=== PATIENT | female | born 1960 | race Caucasian/White ===

== ENCOUNTER → 2018-06-22 16:00 | Outpatient (CLI) | payer BC, SELFPAY ==
--- NOTE | 2018-06-22 16:07 | XR_ITS ---
XR hip LT 2-3V w/pelvis HISTORY: ITS.REASON: LEFT HIP PAIN ORDERING PHYSICIAN: Lino Cho MD PATIENT AGE: 58 years COMPARISON: 01/07/2017 FINDINGS: No fracture or dislocation is evident. No significant degenerative change. No lytic or blastic change. Unremarkable soft tissues. Previously noted acetabular fracture is no longer apparent IMPRESSION: Negative hip
--- NOTE | 2018-06-22 16:07 | XR_ITS ---
EXAM: XR lumbar spine min 4V HISTORY: ITS.REASON: LOW BACK PAIN ORDERING PHYSICIAN: Lino Cho MD PATIENT AGE: 58 years COMPARISON: None FINDINGS: There is normal alignment. There is mild degenerative disc disease at T12-L1 and L1-L2 L4-5 and L5-S1. Anterior osteophytes are present at L1-L2. No acute fracture or dislocation. No lytic or blastic change. There are facet arthritic changes at L5-S1. Incidental vascular calcifications are noted. There are bilateral tubal ligation clips IMPRESSION: Degenerative changes lumbar spine, no acute finding
== END ==
LOC: RAD 16:03
PROVIDERS: PCP Family Medicine; Visit Provider Family Medicine
DX: M25.552 Pain in left hip (principal); M54.5 Low back pain
CPT/HCPCS: 72110; 73502

== ENCOUNTER → 2018-08-07 14:22 | Outpatient (CLI) | payer BC, SELFPAY ==
--- NOTE | 2018-08-07 14:24 | MM_ITS ---
MM Dig screening mamm BI w/CAD CAD Screening COMPARISON: Digital mammograms with CAD 08/16/2014 and 01/26/2013 INDICATION: There is no personal or family history of breast cancer TECHNIQUE: Standard CC and MLO images were obtained. R2 CAD reviewed. FINDINGS: Scattered fibroglandular densities are seen throughout both breasts. There there is a benign-appearing calcification in each breast. There is no suspicious lesion and no suspicious microcalcifications. IMPRESSION: Fibrofatty parenchyma with no suspicious lesion seen BI-RADS Category: 2 Benign Finding(s) RECOMMENDED FOLLOW-UP: 1YR - 1 YEAR FOLLOW-UP (A letter has been sent to the patient regarding results of the study.)
== END ==
PROVIDERS: PCP Family Medicine; Visit Provider Family Medicine
DX: Z12.31 Encounter for screening mammogram for malignant neoplasm of breast (principal)
CPT/HCPCS: 77067

== ENCOUNTER → 2019-11-16 16:23 | Outpatient (CLI) | payer BC, SELFPAY ==
--- NOTE | 2019-11-16 16:26 | MM_ITS ---
PROCEDURE: MM DIG SCREENING MAMM BI W/CAD DIGITAL BREAST TOMOSYNTHESIS INCLUDED Patient Age:59Y CLINICAL INDICATION: SCREENING. No hormones. No new complaints.. This patient does have a history of lung cancer But noncontributory family history.. COMPARISON: DIGMAMMS MAMMOGRAM SCREEN-SLIP SHEETER N/C from 10/01/2007 [facility] DIGITAL MAMM-SCREEN BILATERAL from 01/15/2012 [facility] DIG MAMM-SCREEN JW from 01/26/2013 [facility] DIG MAMM-SCREEN JW from 08/16/2014 [facility] MM Dig screening mamm BI w/CAD from 08/07/2018 TECHNIQUE: Standard CC and MLO images were obtained. R2 CAD reviewed. Bilateral digital breast tomosynthesis included. FINDINGS: Nodw-sp-zlrzmbfd density breast. No new dominant or suspicious mass, no suspicious calcification. No new areas of architectural distortion identified. No malignancy evident radiographically. Bilateral follow-up 1 year recommended . IMPRESSION: Stable bilateral mammogram with no new areas of concern. Bilateral follow-up 1 year recommended BI-RAD Category: 1 Negative FOLLOW-UP: 1YR 1 Year Follow-up (A letter has been sent to the patient regarding results of the study.) Dictated by: Shreyas Broussard MD 11/21/2019 21:18 Electronically signed by Shreyas Broussard MD in [place] 11/21/2019 21:18
== END ==
PROVIDERS: PCP Family Medicine; Visit Provider Family Medicine
DX: Z12.31 Encounter for screening mammogram for malignant neoplasm of breast (principal)
CPT/HCPCS: 77063; 77067

== ENCOUNTER 2020-04-29 09:03 | Emergency (ER) | payer BC, SELFPAY ==
[2020-04-29 09:10] VITALS: BP 120/77; PULSE 77; RESP 20; TEMP 36.7; O2SAT 98; BMI 26.5
--- NOTE | 2020-04-29 09:25 | XR_ITS ---
PROCEDURE: XR CHEST PORTABLE CLINICAL HISTORY: cough COMPARISON: No exams were available for comparison FINDINGS: Normal heart size. Postsurgical changes with suture line in the right hilum. The lateral and anterior aspect of the right 4th rib is missing presumed to be postsurgical. Please correlate with surgical history. There is some pleural thickening in this region. Previously noted mass in the right apex is no longer apparent. The remaining lungs are clear. IMPRESSION: 1. No evidence of pneumonia.. 2. Postsurgical changes. Missing right 3rd rib laterally presumed postsurgical. Please correlate with surgical history as a lytic lesion is an additional consideration. Dictated by: George Mendoza MD 04/29/2020 11:17 George Mendoza MD in [place] 04/29/2020 11:17
--- NOTE | 2020-04-29 09:36 | HMH.EDUTC ---
[facility] [place] [facility] Disposition Clinical Impression: Bronchitis, Viral syndrome, Exposure to COVID-19 virus Disposition: Home, Self-Care Condition on Discharge: Good Instructions: DI for COVID-19 (Suspected or Confirmed ), Preventing the Spread of Coronavirus Discharge Instructions Additional Instructions: Drink plenty of fluids. Take tylenol or ibuprofen for pain or fever. Take the medications as directed. Follow up with your regular doctor. GO TO THE ER FOR ANY WORSENING SYMPTOMS Prescriptions: Benzonatate [Tessalon Perle 100mg Cap] 100 mg PO TIDP PRN #30 cap PRN Reason: Cough Transmission Status: Received by [facility] Azithromycin [Z-Jaylon 250mg Tab*] 250 mg PO UD DOSE PK #6 tab Transmission Status: Received by [facility] Referrals: Lino Cho MD [Primary Care Provider] - Time of Disposition: 10:01 Medical Decision Making - Medical Records Medical records reviewed: No: I reviewed the patient's medical records. - Keith Inquiry Pt receiving controlled substance: No Vital Signs: 04/29/20 09:10 04/29/20 10:03 Temperature 98.0 F 98.0 F Temperature Source Oral Pulse Rate 77 Pulse Rate [Right Brachial] 77 Respiratory Rate 20 20 Blood Pressure 120/77 Blood Pressure [Right Arm] 120/77 Blood Pressure Mean [Right Arm] 91 Blood Pressure Source [Right Arm] Automatic Cuff Blood Pressure Position [Right Arm] Sitting 02 Sat by Pulse Oximetry 98 Oxygen Delivery Method Room Air - Lab Data Lab Results 04/29/20 09:20: SARS-CoV-2 (PCR) Detected 04/29/20 09:41: Strep Scn Rapid Clinic Negative Orders (Tests/Meds): ORDERS Category Date Time Status Strep Screen Confirmation Stat Micro 04/29/20 09:41 Received [facility] [place] [facility] HPI - General Stated complaint: headache, soa, congestion, covid + Time Seen by Provider: 04/29/20 09:36 Mode of Arrival: Ambulatory Source of Information: Patient Limitations: No Limitations Description of Symptoms (Recalled from Triage Doc. by RN): PATIENT REQUESTING COVID TEST D/T EXPOSURE THROUGH . C/O DRY COUGH, HEADACHE, AND BILATERAL RIB PAIN X 2 DAYS HEENT Symptoms (Recalled from RN notes): Yes Resp Symptoms (Recalled from RN notes): Yes Skin Symptoms (Recalled from RN notes): No MS Symptoms (Recalled from RN notes): Yes Functional Status (Recalled from RN notes): WNL - Related Data Previous Rx's Medication Instructions Recorded Azithromycin [Z-Jaylon 250mg Tab*] 250 mg PO UD DOSE PK #6 tab 04/29/20 Benzonatate [Tessalon Perle 100mg 100 mg PO TIDP PRN #30 cap 04/29/20 Cap] Allergies Allergy/AdvReac Type Severity Reaction Status Date / Time No Known Allergies Allergy Verified 04/29/20 09:32 - Worker's Comp Is this a Worker's Comp case?: No [facility] History - Hepatitis A Screen Drug use history?: No High risk sexual behaviors?: No History of sexually transmitted infection?: No Currently employed?: No Childcare worker?: No Do you have indoor plumbing?: Yes Do you have electricity?: Yes Attestation statement:: This patient has been screened for Hepatitis A risk factors. I have reviewed the patient's past medical history: Yes Medical History: Reports:: Cancer - Social History Alcohol Intake: never Occupational Status: other ROS Obtained: Yes All systems reviewed & no additional complaints - Constitutional Constitutional: Reports system reviewed and no additional complaints, except as docu - Eyes Eyes: Reports system reviewed and no additional complaints, except as docu - ENT Ears, Nose, Mouth, and Throat: Reports system reviewed and no additional complaints, except as docu - Cardiovascular Cardiovascular: Reports system reviewed and no additional complaints, except as docu - Respiratory Respiratory: Yes system reviewed and no additional complaints, except as docu - Gastrointestinal Gastrointestingal: Reports: system reviewed and no additional complaints, except as docu Physical Exam
[2020-04-29 09:42] LABS: UTC Strep Screen (Rapid) Negative (Negative)
[2020-04-29 10:03] VITALS: BP 120/77; PULSE 77; RESP 20; TEMP 36.7; O2SAT 98
[2020-04-30 09:29] LABS: Covid-19 Nasal PCR Sendout UK DETECTED
--- NOTE | 2020-04-30 09:33 | PC.NURSE ---
patient notified of positive covid results
== END 2020-04-29 10:05 | disposition home or self-care (01) ==
PROVIDERS: Emergency Provider Nurse Practitioner Family; PCP Family Medicine
DX: U07.1 COVID-19 (principal)
CPT/HCPCS: 71045; 87880; 99202; U0003

== ENCOUNTER → 2021-01-09 16:59 | Outpatient (CLI) | payer BC, SELFPAY ==
--- NOTE | 2021-01-09 17:00 | MM_ITS ---
PROCEDURE: MM DIG SCREENING MAMM BI W/CAD Digital Breast Tomosynthesis Included CLINICAL INDICATION: SCREENING COMPARISON: MG [facility] DIG MAMM-SCREEN JW from 08/16/2014 MG [facility] MM Dig screening mamm BI w/CAD from 08/07/2018 MG MM DIG SCREENING MAMM BI W/CAD from 11/16/2019 TECHNIQUE: Standard CC and MLO images and 3D Tomosynthesis was obtained. R2 CAD reviewed. FINDINGS: There are scattered areas of fibroglandular density. No suspicious appearing mass, malignant-appearing microcalcification, architectural distortion, or skin thickening. No significant change IMPRESSION: BI-RAD Category: 1 Negative FOLLOW-UP: 1 YR 1 Year Follow-up (A letter has been sent to the patient regarding results of the study.) Dictated by: George Mendoza MD 01/17/2021 15:29 George Mendoza MD in [place] 01/17/2021 15:29
== END ==
PROVIDERS: PCP Family Medicine; Visit Provider Family Medicine
DX: Z12.31 Encounter for screening mammogram for malignant neoplasm of breast (principal)
CPT/HCPCS: 77063; 77067

== ENCOUNTER 2021-04-04 15:17 | Emergency (ER) | payer BC, SELFPAY ==
[2021-04-04 16:01] VITALS: BP 156/79; PULSE 64; RESP 18; TEMP 36.9; O2SAT 99; BMI 27.4
[2021-04-04 16:06] LABS: UTC Strep Screen (Rapid) Negative (Negative)
--- NOTE | 2021-04-04 16:10 | HMH.EDUTC ---
[facility] [place] Disposition Clinical Impression: Bronchitis Sinusitis Qualifiers: Sinusitis location: unspecified location Chronicity: acute Recurrence: non-recurrent Qualified Code(s): J01.90 - Acute sinusitis, unspecified Disposition: Home, Self-Care Condition on Discharge: Good Instructions: DI for Sinusitis, DI for Acute Bronchitis Additional Instructions: Drink plenty of fluids. Take tylenol or ibuprofen for pain or fever. Take the medications as directed. Follow up with your regular doctor. GO TO THE ER FOR ANY WORSENING SYMPTOMS Quarantine until you know the results of your covid-19 test. If it is positive, the health department should call you and give you further instructions about your length of Quarantine and other things. Notify your school or workplace of your results and follow their instructions regarding return to work/school. The cough medication (promethazine dm) will make you drowsy, so don't drive or operate heavy machinery after taking it. Prescriptions: Promethazine/Dextromethorphan [Promethazine-Dm Syrup] 5 ml PO Q6HP PRN #240 ml PRN Reason: Cough Transmission Status: Received by [facility] Amoxicillin/Potassium Clav [Augmentin 875-125 Tablet] 1 tab PO Q12H 10 Days #20 tab Transmission Status: Received by [facility] methylPREDNISolone [Medrol] 4 mg PO DIRECTED 6 Days #21 packet Transmission Status: Received by [facility] guaiFENesin [Mucinex 600mg tablet] 1 - 2 tab PO BIDP PRN #30 tab PRN Reason: Congestion Transmission Status: Received by [facility] Referrals: Lino Cho MD [Primary Care Provider] - Medical Decision Making - Medical Records Medical records reviewed: No: I reviewed the patient's medical records. - Keith Inquiry Pt receiving controlled substance: No Vital Signs: 04/04/21 16:01 04/04/21 16:36 Temperature 98.4 F 98.4 F Temperature Source Oral Pulse Rate 64 Pulse Rate [Left] 64 Respiratory Rate 18 18 Blood Pressure 156/79 H Blood Pressure [Right Arm] 156/79 H Blood Pressure Mean [Right Arm] 104 02 Sat by Pulse Oximetry 99 - Lab Data Lab results reviewed: Yes: I reviewed the patient's lab results. Lab Results 04/04/21 15:55: Strep Scn Rapid Clinic Negative Orders (Tests/Meds): ORDERS Category Date Time Status Strep Screen Confirmation Routine Micro 04/04/21 15:55 Received [facility] [place] HPI - General Stated complaint: sore throat, cough, congestion, runny nose headach Time Seen by Provider: 04/04/21 16:10 Mode of Arrival: Ambulatory Source of Information: Patient Limitations: No Limitations Description of Symptoms (Recalled from Triage Doc. by RN): pt c/o cough, fever, sinus pressure, and sore throat. HEENT Symptoms (Recalled from RN notes): Yes (sore throat and sinus pressure) Resp Symptoms (Recalled from RN notes): Yes (cough) Skin Symptoms (Recalled from RN notes): No MS Symptoms (Recalled from RN notes): No Functional Status (Recalled from RN notes): wnl - History of Present Illness Provider Complaint: She c/o cough, chest congestion, sinus congestion, sore throat and she has felt bad for the past 2 days. She has been vaccinated against covid-19. She has a history of having lung cancer 4 years ago and she had part of her right lung removed then. - Related Data Previous Rx's Medication Instructions Recorded Azithromycin [Z-Jaylon 250mg Tab*] 250 mg PO UD DOSE PK #6 tab 04/29/20 Benzonatate [Tessalon Perle 100mg 100 mg PO TIDP PRN #30 cap 04/29/20 Cap] Amoxicillin/Potassium Clav 1 tab PO Q12H 10 Days #20 tab 04/04/21 [Augmentin 875-125 Tablet] Promethazine/Dextromethorphan 5 ml PO Q6HP PRN #240 ml 04/04/21 [Promethazine-Dm Syrup] guaiFENesin [Mucinex 600mg tablet] 1 - 2 tab PO BIDP PRN #30 tab 04/04/21 methylPREDNISolone [Medrol] 4 mg PO DIRECTED 6 Days #21 04/04/21 packet Allergies Allergy/AdvReac Type Severity Reaction Status Date / Time No K
[2021-04-04 16:36] VITALS: BP 156/79; PULSE 64; RESP 18; TEMP 36.9
== END 2021-04-04 16:40 | disposition home or self-care (01) ==
PROVIDERS: Emergency Provider Nurse Practitioner Family; PCP Family Medicine
DX: J01.90 Acute sinusitis, unspecified (principal); Z20.822 Contact with and (suspected) exposure to COVID-19; Z85.118 Personal history of other malignant neoplasm of bronchus and lung
CPT/HCPCS: 87880; 99203; C9803; G0463; U0003; U0005

== ENCOUNTER → 2023-04-29 08:49 | Outpatient (CLI) | payer BC, SELFPAY ==
--- NOTE | 2023-04-29 08:52 | XR_ITS ---
FINAL REPORT CLINICAL HISTORY: right wrist pain COMPARISON: None FINDINGS: RIGHT WRIST Three views demonstrate no acute fracture or dislocation. The visualized joint spaces are normally aligned. The soft tissues are unremarkable. IMPRESSION: No acute bony abnormality. Reviewed, Interpreted and Dictated by Manjeet Boles MD Transcribed by Martha Lowery Authenticated and [facility][1]
--- NOTE | 2023-04-29 08:52 | XR_ITS ---
FINAL REPORT CLINICAL HISTORY: left wrist pain COMPARISON: None FINDINGS: LEFT WRIST Three views demonstrate no acute fracture or dislocation. The visualized joint spaces are normally aligned. The soft tissues are unremarkable. There is mild hypertrophic change of osteoarthritis involving the basilar joint. IMPRESSION: No acute bony abnormality. Reviewed, Interpreted and Dictated by Manjeet Boles MD Transcribed by Martha Lowery Authenticated and [facility]
== END ==
LOC: RAD 08:50
PROVIDERS: PCP Family Medicine; Visit Provider Orthopaedic Surgery
DX: G56.03 Carpal tunnel syndrome, bilateral upper limbs (principal)
CPT/HCPCS: 73110

== ENCOUNTER 2023-05-14 11:07 | Outpatient (CLI) | payer BC, SELFPAY ==
--- NOTE | 2023-05-14 11:21 | ECG_ITS ---
APPROVED REPORT Exam: Resting ECG HR:70 bpm ECG Measurements Heart Rate 70 AXES QRSd 107 QRS 96 QT 375 T 71 QTc 395 Conclusion ATRIAL FLUTTER/TACHYCARDIA BORDERLINE RIGHT AXIS DEVIATION [QRS AXIS > 90] ABNORMAL RHYTHM ECG UNCONFIRMED REPORT Electronically signed by : Van Vasquez MD 05/15/2023 20:34:02
--- NOTE | 2023-05-14 11:21 | PC.NURSE ---
Pt for outpatient EKG reason being Pre-OP. EKG abnormal. Spoke to Dr. Cho's office manager receptionist states Pt needs to be seen. Pt aware and agreeable.
--- NOTE | 2023-05-14 11:36 | XR_ITS ---
FINAL REPORT CLINICAL HISTORY: Pre Op COMPARISON: 04/29/2020 FINDINGS: Two views of the chest were obtained. The heart size and pulmonary vascularity are within normal limits. The mediastinum is normal. No acute pulmonary abnormality is identified. There is no pneumothorax. The bony thorax is intact. IMPRESSION: No active cardiopulmonary disease. Reviewed, Interpreted and Dictated by Lewis Desai III, MD Transcribed by Deyanria Chery Authenticated and [facility]
[2023-05-14 11:51] LABS: Basophils # 0.1 K/mm3 (0-0.2); Eosinophils # 0.2 K/mm3 (0.0-0.4); Eosinophils % 2.9 % (0.1-12.0); Hematocrit 45.7 % (37.0-47.0); Lymphocytes # 2.4 K/mm3 (0.7-4.5); Lymphocytes % 40.8 % (10-50); Mean Corpuscular HGB Conc 32.9 g/dL (31.8-35.4); Mean Corpuscular Hemoglobin 30.8 pg (27.0-31.2); Mean Corpuscular Volume 93.9 fl (81-99); Mean Platelet Volume 9.3 fl (7.4-10.4); Monocytes # 0.3 K/mm3 (0.1-1.0); Monocytes % 5.2 % (1.7-9.3); Neutrophils % 50.2 % (37.0-80.0); Platelet Count 207 K/mm3 (142-424); Red Blood Count 4.87 M/mm3 (4.20-5.40); Red Cell Distribution Width 13.1 % (11.5-17.5)
[2023-05-14 12:08] LABS: Alanine Aminotransferase 25 U/L (12-78); Albumin Level 4.4 g/dl (3.5-5.0); Albumin/Globulin Ratio 1.7 (1.1-1.8); Alkaline Phosphatase 47 U/L (38-126); Anion Gap 7.5 mEq/L (5-15); Aspartate Amino Transferase 35 U/L (14-36); Bilirubin,Total 0.8 mg/dl (0.2-1.3); Blood Urea Nitrogen 11 mg/dl (7-17); Carbon Dioxide 29 mmol/L (22.0-30.0); Chloride 104 mmol/L (98-107); Estimated Glomerular Filt Rate 64 ml/min (>60); GFR (African American) 77 ML/MIN (>60); Globulin 2.6 g/dL (1.3-3.2); Glucose 104 mg/dl (74-100); Potassium 4.5 mmoL/L (3.5-5.1); Sodium 136 mmol/L (136-145)
== END 2023-05-14 23:59 ==
PROVIDERS: PCP Family Medicine; Visit Provider Orthopaedic Surgery
DX: Z01.818 Encounter for other preprocedural examination (principal)
CPT/HCPCS: 36415; 71046; 80053; 85025; 93005

== ENCOUNTER 2023-08-04 08:44 | Emergency (ER) | payer BC, SELFPAY ==
[2023-08-04] VITALS (11 sets, daily range): BP systolic 102–163; BP diastolic 48–94; PULSE 44–66; RESP 16–18; TEMP 36.9; O2SAT 92–98; BMI 25.6
--- NOTE | 2023-08-04 08:44 | ECG_ITS ---
APPROVED REPORT Exam: Resting ECG HR:65 bpm ECG Measurements Heart Rate 65 AXES QRSd 89 QRS 88 QT 387 T 57 QTc 399 Conclusion Atrial flutter with 4:1 block - intermittent with apparent idioventricular rhythm Nonspecific ST/T wave changes No STEMI Electronically signed by : ADRIANNE PORRAS, 08/04/2023 15:57:18
--- NOTE | 2023-08-04 08:59 | CT_ITS ---
FINAL REPORT TECHNIQUE: Axial imaging of the neck was obtained after the intravenous administration of contrast per CTA protocol. Reformatted images were also obtained and reviewed. This study was performed with techniques to keep radiation doses as low as reasonably achievable (ALARA). Individualized dose reduction techniques using automated exposure control or adjustment of mA and/or kV according to the patient's size were employed. CLINICAL HISTORY: sudden onset vertigo, FINDINGS: CTA NECK: Aortic arch: There is a normal three-vessel configuration to the aortic arch. There is no significant stenosis of the great vessels at their origins. Right carotid artery: The right common carotid artery is patent without stenosis. The cervical portions of the right internal carotid artery are patent without stenosis. Left carotid artery: The left common carotid artery is patent without stenosis. The cervical portions of the left internal carotid artery are patent without stenosis. Vertebral arteries: The vertebral arteries are patent. Other soft tissues: unremarkable . IMPRESSION: No carotid stenosis. Patent vertebral arteries. Reviewed, Interpreted and Dictated by Eli Harrison MD Transcribed by Kirstin Godfrey Authenticated and [facility]
--- NOTE | 2023-08-04 08:59 | CT_ITS ---
FINAL REPORT TECHNIQUE: Axial imaging of the head was obtained without contrast. This study was performed with techniques to keep radiation doses as low as reasonably achievable, (ALARA). Individualized dose reduction techniques using automated exposure control or adjustment of mA and/or kV according to the patient''s size were employed. CLINICAL HISTORY: sudden onset vertigo, visual disturbance,LLE drift stroke protocol FINDINGS: The ventricles are normal in size. There is no evidence of hemorrhage. No masses are identified. No extra-axial fluid is seen. The sinuses are normal. There is no acute osseous abnormality. IMPRESSION: No acute intracranial abnormality. Reviewed, Interpreted and Dictated by Eli Harrison MD Transcribed by Kirstin Godfrey Authenticated and [facility]
--- NOTE | 2023-08-04 08:59 | CT_ITS ---
FINAL REPORT TECHNIQUE: Thin section axial images were obtained through the neck and head after contrast administration per CT angiogram protocol. Multiplanar reconstruction images were obtained from the axial data. Exam was performed using dose reduction technique. CLINICAL HISTORY: sudden onset vertigo, stroke protocol FINDINGS: CTA NECK: Aortic arch: There is a normal three-vessel configuration to the aortic arch. There is no significant stenosis of the great vessels at their origins. Right carotid artery: The right common carotid artery is patent without stenosis. The cervical portions of the right internal carotid artery are patent without stenosis. Left carotid artery: The left common carotid artery is patent without stenosis. The cervical portions of the left internal carotid artery are patent without stenosis. Vertebral arteries: The vertebral arteries are patent. Other soft tissues: unremarkable . CTA HEAD: The intracerebral portions of the carotid arteries are patent. The anterior and middle cerebral arteries are patent. The basilar artery is patent. There is persistent origin of the right [employer]. [place] is intact. There is no significant stenosis, aneurysm, or AVM. IMPRESSION: CTA NECK: No carotid stenosis, patent vertebral arteries. CTA HEAD: Patent intracerebral vasculature no large vessel. No large vessel occlusion or significant stenosis. Reviewed, Interpreted and Dictated by Eli Harrison MD Transcribed by Kirstin Godfrey Authenticated and [facility]
--- NOTE | 2023-08-04 08:59 | CT_ITS ---
FINAL REPORT TECHNIQUE: Postcontrast axial images of the chest were performed in a CTA protocol. This study was performed with techniques to keep radiation doses as low as reasonably achievable, (ALARA). Individualized dose reduction technique using automated exposure control or adjustment of mA and/or kV according to the patient's size were employed. CLINICAL HISTORY: chest pain/tightness elevated hr FINDINGS: The heart is mildly enlarged. There is an enlarged left prevascular lymph node measuring 19 mm. There is AP window lymphadenopathy measuring 19 mm. No hilar lymphadenopathy is seen. No pleural or pericardial effusion is identified. The thoracic aorta is normal in caliber with no focal aneurysm or dissection identified. There is no filling defect to suggest pulmonary embolism. There are postoperative changes to the right lung. Groundglass opacities are seen in the left lung and right lung base which represent mild pulmonary edema. There is been partial resection of the right fourth rib. The images of the upper abdomen are unremarkable. IMPRESSION: No evidence for PE or dissection on this exam. Lymphadenopathy, nonspecific could be reactive or neoplastic. Groundglass opacities which may represent mild edema. Consider follow-up. Reviewed, Interpreted and Dictated by Eli Harrison MD Transcribed by Kirstin Godfrey Authenticated and . [facility]
--- NOTE | 2023-08-04 09:01 | PC.NURSE ---
RAD notified scans are stroke protocol
--- NOTE | 2023-08-04 09:03 | PC.NURSE ---
Pt gone to RAD via stretcher
[2023-08-04 09:07] LABS: Basophils # 0.1 K/mm3 (0-0.2); Basophils % 1.4 % (0.1-2.0); Eosinophils # 0.1 K/mm3 (0.0-0.4); Eosinophils % 2.3 % (0.1-12.0); Hematocrit 40.8 % (37.0-47.0); Hemoglobin 13.6 g/dL (12.2-16.2); Lymphocytes # 2.1 K/mm3 (0.7-4.5); Lymphocytes % 41.9 % (10-50); Mean Corpuscular HGB Conc 33.3 g/dL (31.8-35.4); Mean Corpuscular Hemoglobin 32.1 pg (27.0-31.2); Mean Corpuscular Volume 96.4 fl (81-99); Mean Platelet Volume 9.6 fl (7.4-10.4); Monocytes # 0.3 K/mm3 (0.1-1.0); Monocytes % 5.3 % (1.7-9.3); Neutrophils # 2.4 K/mm3 (1.8-7.8); Platelet Count 185 K/mm3 (142-424); Red Blood Count 4.23 M/mm3 (4.20-5.40); Red Cell Distribution Width 13.2 % (11.5-17.5)
[2023-08-04 09:08] LABS: Chloride 112 mmol/L (98-107)
[2023-08-04 09:09] LABS: Sodium 140 mmol/L (136-145)
[2023-08-04] MEDS: SODIUM CHLORIDE 0.9% 10ML SYR (RAD ONLY) 10 ML IV ×2 (09:10→09:16)
[2023-08-04] MEDS: IOPAMIDOL-370 (76%);100ML BOTTLE 100 ML IV (09:10)
[2023-08-04] MEDS: 0.9 % SODIUM CHLORIDE 50 ML VIAL IV ×2 (09:10→09:16)
[2023-08-04 09:11] LABS: Alanine Aminotransferase 42 U/L (12-78); Alkaline Phosphatase 55 U/L (38-126); Aspartate Amino Transferase 38 U/L (14-36); Bilirubin,Total 0.6 mg/dl (0.2-1.3); Blood Urea Nitrogen 13 mg/dl (7-17); Carbon Dioxide 25 mmol/L (22.0-30.0); Creatinine Clearance Estimated 58 mL/min (50-200); Estimated Glomerular Filt Rate 63 ml/min (>60); GFR (African American) 77 ML/MIN (>60)
[2023-08-04 09:12] LABS: Albumin Level 3.9 g/dl (3.5-5.0); Albumin/Globulin Ratio 1.3 (1.1-1.8); Calcium 9.1 mg/dl (8.4-10.2); Globulin 2.9 g/dL (1.3-3.2); Glucose 129 mg/dl (74-100); Magnesium 1.7 mg/dl (1.6-2.3); Total Protein,Serum 6.8 g/dl (6.3-8.2)
[2023-08-04 09:14] LABS: Activated Partial Thrombo Time 27.4 seconds (22.8-30.6); INR 0.96 (0.9-1.1); Prothrombin Time 10.4 seconds (10.1-12.5)
[2023-08-04] MEDS: IOPAMIDOL-370 (76%);100ML BOTTLE 70 ML IV (09:16)
--- NOTE | 2023-08-04 09:19 | PC.NURSE ---
pt arrived back to room from ct
--- NOTE | 2023-08-04 09:21 | ECG_ITS ---
APPROVED REPORT Exam: Resting ECG HR:61 bpm ECG Measurements Heart Rate 61 AXES RI 191 P 78 QRSd 100 QRS 95 QT 418 T 77 QTc 421 Conclusion SINUS RHYTHM BORDERLINE RIGHT AXIS DEVIATION [QRS AXIS > 90] BORDERLINE ECG Electronically signed by : ADRIANNE PORRAS, 08/04/2023 15:55:04
[2023-08-04 09:24] LABS: Troponin I 0.03 ng/ml (0.00-0.034)
--- NOTE | 2023-08-04 09:25 | PC.NURSE ---
bedside finger stick 112
[2023-08-04] MEDS: MECLIZINE 25MG TABLET 25 MG PO (09:26)
--- NOTE | 2023-08-04 09:26 | HMH.EDCP ---
Discharge Plan Disposition Patient Disposition: Home, Self-Care Condition: Good Prescriptions Prescriptions: New aspirin 81 mg capsule 81 mg PO DAILY Qty: 30 0RF atorvastatin 40 mg tablet 40 mg PO DAILY Qty: 30 0RF No Action gabapentin 100 mg capsule 100 mg PO BID cholecalciferol (vitamin D3) 50 mcg (2,000 unit) capsule 50 mcg PO DAILY cyanocobalamin (vitamin B-12) 1,000 mcg capsule 1,000 mcg PO DAILY escitalopram oxalate 20 mg tablet 20 mg PO DAILY Qty: 30 2RF Referrals Follow up/Referrals: Lino Cho MD [Primary Care Provider] - See instructions Activity Restrictions/Add. Instructions Additional Instructions/Restrictions: You were evaluated in the emergency department today. It is important to know that your MRI results are still pending at this time and we do not have the results right now. Please call your primary care provider and see him in clinic tomorrow for close follow-up. supervisor [employer] your prescriptions and take as prescribed. I also recommend close follow-up with your correspondence school teacher at [place]. Return to the emergency department for new or worsening symptoms. Clinical Impressions Clinical Impression: Transient neurological symptoms, Palpitations, Atrial flutter Instructions Patient Instructions: DI for Atypical Chest Pain Discharge ED Provider: Charo Rutledge HPI General Chief Complaint: Chest Pain Stated Complaint: chest pain Time Seen by Provider: 08/04/23 08:48 Mode of Arrival: Wheelchair Source of Information: Patient and Relative Limitations: No Limitations Description of Symptoms (Recalled from ER Triage Doc. by RN): pt states she woke up this am dizzy, weak and having N/V. pt c/o L sided chest discomfort that radiates down her L arm. symptom onset at 0745. pt states she feels like her heart is racing and she has ice running from her heart down her L arm. pt is A&O x4. NIH score 1 due to L leg drift that did not hit the bed. the pts daughter reports she had a cardiac ablation on the at [facility] without any complications. The procedure was due to a.flutter. History of Present Illness HPI narrative: This patient is a 63-year-old female with a history of atrial flutter status post ablation on presenting to the emergency department for evaluation with concern for sudden onset dizziness, chest tightness, sensation of ice in her left arm, and palpitations. She states she feels like her heart is racing. She notes that she is having true vertigo as if the room is spinning. She also states that she has had intractable nausea and vomiting since this started. She denies experiencing tinnitus in the past. No history of vertigo, inner ear issues, or other concerns. On review of systems, she does note that she also has blurred vision. No headache, shortness of breath, abdominal pain, changes in bowel movements, or other concerns. Last known normal was around 745 this morning. She states she woke up around 15 minutes prior to this and was completely normal, however then she had sudden onset symptoms. She notes that she last took her Eliquis last night. No other concerns noted Related Data Home Medications Medication Instructions Recorded Confirmed cholecalciferol (vitamin D3) 50 50 mcg PO DAILY 12/04/21 05/14/23 mcg (2,000 unit) capsule cyanocobalamin (vitamin B-12) 1,000 mcg PO DAILY 12/04/21 05/14/23 1,000 mcg capsule gabapentin 100 mg capsule 100 mg PO BID 12/04/21 05/14/23 Previous Rx's Medication Instructions Recorded escitalopram oxalate 20 mg tablet 20 mg PO DAILY #30 tabs 07/02/22 aspirin 81 mg capsule 81 mg PO DAILY #30 caps 08/04/23 atorvastatin 40 mg tablet 40 mg PO DAILY #30 tabs 08/04/23 Allergies Allergy/AdvReac Type Severity Reaction Status Date / Time No Known Allergies Allergy Verified 05/14/23 08:58 [facility] Disclaimer: The information contained in this section may have been updated after the patient was seen, as this information can be updated by other users. Medical History Urinary tract infection History of gastroesophageal reflux (GERD) Lung cancer Surgical History History of cholecystectomy Family History Other Family history of acute heart failure Family history of cancer Social History Smoking Status: Never smoker alcohol intake: never substance use type: denies use current occupational status: retired Travel in the last 8 weeks: None ROS Obtained: Yes All systems reviewed & no additional complaints except as documented Physical Exam General General appearance: alert and in no apparent distress Comment: Uncomfortable appearing Head Head exam: atraumatic and normocephalic Eye Eye exam: Present normal appearance, PERRL and EOMI ENT ENT exam: Present normal exam, normal oropharynx, mucous membranes moist and normal external ear exam Neck Neck exam: Present normal inspection, full ROM and trachea midline; Absent tenderness Chest Chest inspection: Present normal inspection and symmetric chest wall rise; Absent tenderness Respiratory Respiratory exam: Present normal lung sounds bilaterally; Absent respiratory distress, wheezes, stridor or accessory muscle use Cardiovascular Cardiovascular exam: Present regular rate and normal rhythm Abdominal Exam Abdominal exam: Present soft; Absent distention, tenderness or guarding Extremities Exam Extremities exam: Present normal inspection, full ROM and normal capillary refill; Absent tenderness or edema Back Exam Back exam: Present normal inspection and full ROM; Absent tenderness Neurological Exam Neurological exam: Present alert, oriented X3, CN II-XII intact, normal gait and motor sensory deficit Expanded Neurological Exam Patient oriented to: Present person, place and time Speech: Present fluid speech Cranial nerves: Normal: EOM function (II, III, IV, ), facial sensation (V), facial palsy (VII), spinal accessory function (XI) and tongue deviation (XII) Cerebellar function: Normal: finger to nose and heel to garcia Motor strength - LUE: 5/5 Motor strength - RUE: 5/5 Motor strength - LLE: 4/5 Motor strength - RLE: 5/5 Upper motor neuron exam: Normal: reynaldo neglect and pronator drift Sensory exam upper extremity: Normal: light touch Sensory exam lower extremity: Normal: light touch Coma scale eye opening: Spontaneous Coma scale motor response: Obeys commands Coma scale verbal response: Oriented Coma scale total: 15 Comment: NIH stroke scale of 1 for drift without any bit of left lower extremity Psychiatric Psychiatric exam: Present normal affect and normal mood Skin Skin exam: Present warm and dry HEART Score HEART Score HEART Score assessment performed?: Yes History (anamnesis): Highly suspicious ECG: Non-specific disturbance Age: 45-65 years Risk factors: 1-2 risk factors Troponin: </= normal limit HEART Score: 5 Critical Care Critical Care Time Critical Care Time: No Medical Decision Making Medical Records Medical records reviewed: Yes I reviewed the patient's medical records. Keith Inquiry Pt receiving controlled substance: No Vital Signs Vital Signs: 08/04/23 08:47 08/04/23 08:54 08/04/23 09:20 Temperature 98.4 F Temperature Source Oral Pulse Rate 61 66 Pulse Rate [Left] 62 Respiratory Rate 16 Blood Pressure 163/94 H 130/89 Blood Pressure [Right Arm] 163/94 H Blood Pressure Mean [Right Arm] 117 Blood Pressure Source Blood Pressure Source [Right Arm] Automatic Cuff Blood Pressure Position [Right Arm] Sitting 02 Sat by Pulse Oximetry 95 95 93 L Oxygen Delivery Method Room Air 08/04/23 09:45 08/04/23 10:01 08/04/23 10:30 Temperature Temperature Source Pulse Rate 49 L 50 L 52 L Pulse Rate [Left] Respiratory Rate Blood Pressure 131/82 121/73 116/77 Blood Pressure [Right Arm] Blood Pressure Mean [Right Arm] Blood Pressure Source Blood Pressure Source [Right Arm] Blood Pressure Position [Right Arm] 02 Sat by Pulse Oximetry 94 L 92 L 94 L Oxygen Delivery Method Room Air Room Air Room Air 08/04/23 11:00 08/04/23 11:30 08/04/23 12:01 Temperature Temperature Source Pulse Rate 44 L 48 L 50 L Pulse Rate [Left] Respiratory Rate Blood Pressure 105/64 L 110/64 102/48 L Blood Pressure [Right Arm] Blood Pressure Mean [Right Arm] Blood Pressure Source Blood Pressure Source [Right Arm] Blood Pressure Position [Right Arm] 02 Sat by Pulse Oximetry 95 93 L 95 Oxygen Delivery Method Room Air Room Air 08/04/23 12:29 08/04/23 14:18 Temperature 98.4 F Temperature Source Oral Pulse Rate 49 L 58 L Pulse Rate [Left] Respiratory Rate 18 Blood Pressure 137/74 133/84 Blood Pressure [Right Arm] Blood Pressure Mean [Right Arm] Blood Pressure Source Automatic Cuff Blood Pressure Source [Right Arm] Blood Pressure Position [Right Arm] 02 Sat by Pulse Oximetry 97 Oxygen Delivery Method Room Air Room Air Lab Data Labs: Lab Results 08/04/23 08:48: WBC 5.0, RBC 4.23, Hgb 13.6, Hct 40.8, MCV 96.4, MCH 32.1 H, MCHC 33.3, RDW 13.2, Plt Count 185, MPV 9.6, Neut % (Auto) 49.0, Lymph % (Auto) 41.9, [place] % (Auto) 5.3, Eos % (Auto) 2.3, Baso % (Auto) 1.4, Neut # (Auto) 2.4, Lymph # (Auto) 2.1, [place] # (Auto) 0.3, Eos # (Auto) 0.1, Baso # (Auto) 0.1, PT 10.4, INR 0.96, APTT 27.4, Sodium 140, Potassium 4.0, Chloride 112 H, Carbon Dioxide 25, Anion Gap 7.0, BUN 13, Creatinine 0.90, Estimated Creat Clear 58, Estimated GFR 63, Est GFR ( Amer) 77, Glucose 129 H, Calcium 9.1, Magnesium 1.7, Total Bilirubin 0.6, AST 38 H, ALT 42, Alkaline Phosphatase 55, Troponin I 0.03, NT-Pro-B Natriuret Pep 908 H, Total Protein 6.8, Albumin 3.9, Globulin 2.9, Albumin/Globulin Ratio 1.3 08/04/23 09:25: SARS-CoV-2 (PCR) Not detected, Influenza A Untype (PCR) Not detected, Influenza Type B (PCR) Not detected 08/04/23 11:39: Troponin I 0.03 08/04/23 08:48 08/04/23 08:48 Response Orders (Tests/Meds): ED MEDICATIONS Discontinued Medications Generic Name Dose Route Start Last Admin Trade Name Freq PRN Reason Stop Dose Admin Aspirin 324 mg 08/04/23 09:48 08/04/23 10:05 Aspirin 81mg Chewable Tablet PO 08/04/23 09:49 324 mg ONCE ONE Administration Iopamidol 100 ml 08/04/23 09:08 08/04/23 09:10 Iopamidol-370 (76%);100ml Bottle IV 08/04/23 09:09 100 ml ONCE ONE Administration Iopamidol 70 ml 08/04/23 09:14 08/04/23 09:16 Iopamidol-370 (76%);100ml Bottle IV 08/04/23 09:15 70 ml ONCE ONE Administration Meclizine HCl 25 mg 08/04/23 09:02 08/04/23 09:26 Meclizine 25mg Tablet PO 08/04/23 09:03 25 mg ONCE ONE Administration Ondansetron HCl 4 mg 08/04/23 09:00 08/04/23 09:28 Ondansetron 4mg/2ml Vial IV 08/04/23 09:01 4 mg ONCE ONE Administration Sodium Chloride 50 ml 08/04/23 09:08 08/04/23 09:10 0.9 % Sodium Chloride 50 Ml Vial IV 08/04/23 09:09 50 ml ONCE ONE Administration Sodium Chloride 10 ml 08/04/23 09:08 08/04/23 09:10 Sodium Chloride 0.9% 10ml Syr (Rad Only) IV 09/03/23 09:07 10 ml NEEDED PRN Administration Maintain IV Site Sodium Chloride 50 ml 08/04/23 09:14 08/04/23 09:16 0.9 % Sodium Chloride 50 Ml Vial IV 08/04/23 09:15 50 ml ONCE ONE Administration Sodium Chloride 10 ml 08/04/23 09:14 08/04/23 09:16 Sodium Chloride 0.9% 10ml Syr (Rad Only) IV 09/03/23 09:13 10 ml NEEDED PRN Administration Maintain IV Site ORDERS Category Date Time Status CT angio chest PE protocol Stat Cat Scan 08/04/23 08:[address] angio head Stat Cat Scan 08/04/23 08:[address] angio neck Stat Cat Scan 08/04/23 08:[address] head/brain wo con Stat Cat Scan 08/04/23 08:59 Completed Activated Partial Thrombo Time Stat Lab 08/04/23 08:48 Completed Brain Natriuretic Peptide Stat Lab 08/04/23 08:48 Completed Complete Blood Count Auto Diff Stat Lab 08/04/23 08:48 Completed Comprehensive Metabolic Panel Stat Lab 08/04/23 08:48 Completed Magnesium Stat Lab 08/04/23 08:48 Completed Prothrombin Time INR Stat Lab 08/04/23 08:48 Completed Rapid PCR Covid and Flu A/B Stat Lab 08/04/23 09:25 Completed Troponin I Q3H Lab 08/04/23 11:39 Completed Troponin I Stat Lab 08/04/23 08:48 Completed ECG Data Tracing #1: Attestation: I reviewed this ECG and interpreted as documented below: ECG Narrative: Atrial flutter with a ventricular rate of [address] elevations concerning for STEMI. ECG initial impression date: 08/04/23 ECG initial impression time: 08:46 Tracing #2: Attestation: I reviewed this ECG and interpreted as documented below: ECG Narrative: Normal sinus rhythm with a ventricular rate of [address] elevations concerning for ischemia. Normal intervals. ECG initial impression date: 08/04/23 ECG initial impression time: 09:22 MDM Narrative Medical Decision Narrative: In summary, this patient is a 63-year-old female presenting to the Emergency Department for evaluation of chest tightness, palpitations, icy sensation in her left arm, sudden onset vertigo, and visual disturbance. Differential diagnoses considered include but are not limited to CVA, TIA, intracranial hemorrhage, intracranial mass, hypoglycemia, ACS, dysrhythmia, peripheral vertigo. Ruling out the most morbid conditions drove assessment. On exam, the patient is initially uncomfortable appearing with complaints of significant nausea. She also feels very dizzy. She was given IV Zofran as well as oral meclizine for symptomatic improvement. She has an NIH stroke scale of 1 for left lower extremity drift, but otherwise no focal neurologic deficits on exam. No significant nystagmus. Workup included CBC, CMP, troponin, magnesium, CT head without contrast, CTA head, neck, and chest. Patient was taken emergently to CT scans prior to lab evaluation given her last known normal of approximate 1 hour prior to arrival. Initial EKG demonstrated atrial flutter. Please see interpretation above. I independently interpreted CT scans prior to the radiologist read and noted no obvious large vessel occlusion, acute area of ischemia, PE, or other concern. Please see their read for final interpretation. Labs were obtained that demonstrated initial troponin of 0.03. No other acutely concerning abnormalities. Given concerns for stroke with patient presenting within tPA window, I had an indirect discussion with Siddharth López with [facility] Stroke Team who advised that the patient would not be candidate for tPA given low NIH stroke scale and the fact that she is on Eliquis They also advised no large vessel occlusion. They advised they only have beds right now for patients who are requiring intervention, but they waitlisted this patient for a bed. On reassessment, patient had great improvement after administration of meclizine and Zofran. She is feeling much better. Her EKG is now normal sinus rhythm with no flutter. NIH stroke scale is effectively 0, as her left lower extremity deficits have resolved. It could be that this is peripheral vertigo and she was just feeling acutely ill at the time and unable to cooperate well with exam, but I favor TIA is a more likely cause given the sudden nature of her symptoms as well as the L sided deficits. Ultimately, feel the patient would benefit from admission for continued cardiac monitoring as well as potential echocardiogram and MRI of her head for further stroke workup. She is not currently on aspirin or statin, only Eliquis. Patient states she would prefer not to stay at all. I will call and have direct discussion with her primary care provider, Dr. Cho, regarding plan of care. On multiple subsequent reassessments, the patient had no recurrence of symptoms. Ultimately, we were able to obtain an MRI of the brain without contrast while the patient was in the emergency department. I felt this would be beneficial to further evaluate for possible stroke in the setting of negative CT scan. I continue to urged the patient that she be admitted for further evaluation and management with concern for possible TIA as a cause of her symptoms, though it is possible it could have been benign vertigo that improved with meclizine. Again, it also is possible that it was related to her atrial flutter that was present on initial EKG. I had a discussion with Dr. Cho who advised that he would be happy to admit the patient or he could see the patient in clinic tomorrow if she wishes to go home. Patient remains adamant that she go home. Second troponin was obtained and demonstrated no change. She has normal vital signs on cardiac telemetry, and neuroexam has remained reassuring. MRI, again, is still pending, which patient is aware of. Ultimately, she wants to leave. I started on an aspirin and statin for optimization from a cardiovascular standpoint to prevent stroke. I advised that she follow-up very closely with Dr. Cho tomorrow as well as call her correspondence school teacher and notify them that she did have concerning findings for atrial flutter on initial EKG. She is already on metoprolol and Eliquis, and repeat EKG is normal sinus rhythm. At this time, patient was discharged by patient directed discharge. Strict return precautions were given as well as instructions for close follow-up. Patient was given prescription for aspirin and statin.
[2023-08-04 09:28] LABS: Coronavirus 19, PCR Not Detected (NotDetected); Influenza A, PCR Not Detected (NotDetected); Influenza B, PCR Not Detected (NotDetected)
[2023-08-04] MEDS: ONDANSETRON 4MG/2ML VIAL 4 MG IV (09:28)
--- NOTE | 2023-08-04 09:29 | PC.NURSE ---
called [facility] per to speak with stroke
--- NOTE | 2023-08-04 09:29 | PC.NURSE ---
speaking with keyla from stroke at [facility]
--- NOTE | 2023-08-04 09:32 | PC.NURSE ---
Per no [facility], no bed availability at this time, will put on wait list
--- NOTE | 2023-08-04 09:32 | HMH.ITSTN ---
GFR completion/results were overrode for the use of contrast media by the Physician on a risk vs. benefit situation with this patient.
--- NOTE | 2023-08-04 09:38 | PC.NURSE ---
Dr. Rutledge at [facility] for pt eval
[2023-08-04 09:41] LABS: NT Pro Brain Natriuretic Pep. 908 pg/mL (0-125)
[2023-08-04] MEDS: ASPIRIN 81MG CHEWABLE TABLET 324 MG PO (10:05)
--- NOTE | 2023-08-04 10:45 | PC.NURSE ---
pt ambulated to restroom with my assistance
--- NOTE | 2023-08-04 10:46 | PC.NURSE ---
pt back to room
--- NOTE | 2023-08-04 11:40 | PC.NURSE ---
second trop drawn and sent to lab
[2023-08-04 12:11] LABS: Troponin I 0.03 ng/ml (0.00-0.034)
--- NOTE | 2023-08-04 12:18 | MR_ITS ---
FINAL REPORT TECHNIQUE: Multiplanar and multisequence imaging of the brain was obtained without contrast. CLINICAL HISTORY: sudden onset vertigo/vision change, neg stroke CT FINDINGS: There are moderate periventricular and subcortical white matter changes which could be related to chronic small vessel ischemic change. The gyri and sulci are within normal limits for age. There is no mass effect or midline shift. The ventricles are symmetric in size and configuration without hydrocephalus. There are no areas of abnormal signal intensity. The cerebellum and brainstem have a normal appearance. There are no areas of restricted diffusion on diffusion weighted images to suggest acute infarct. Soft tissues are without acute abnormality. IMPRESSION: Moderate periventricular and subcortical white matter changes but could be related to chronic small vessel ischemic change. No acute intracranial abnormality. Reviewed, Interpreted and Dictated by Eli Harrison MD Transcribed by Kirstin Godfrey Authenticated and . [facility]
--- NOTE | 2023-08-04 12:25 | PC.NURSE ---
SPOKE WITH MRI , THEY ARE COMING TO GET PT
== END 2023-08-04 14:20 | disposition home or self-care (01) ==
PROVIDERS: Emergency Provider Emergency Medicine; PCP Family Medicine
DX: R07.89 Other chest pain (principal); R29.818 Other symptoms and signs involving the nervous system; I48.92 Unspecified atrial flutter; R00.2 Palpitations; R42 Dizziness and giddiness; Z79.01 Long term (current) use of anticoagulants
CPT/HCPCS: 70450; 70496; 70498; 70551; 71275; 80053; 83735; 83880; 84484; 85025; 85610; 85730; 87636; 93005; 96374; 99285; J2405; Q9967

== ENCOUNTER 2024-09-20 07:53 | Outpatient (CLI) | payer BC, SELFPAY ==
--- NOTE | 2024-09-20 08:00 | MM_ITS ---
PROCEDURE INFORMATION: Exam: MG Bilateral Screening 3D Mammography Exam date and time: 09/20/2024 8:06 AM Age: 64 years old Clinical indication: Screening exam TECHNIQUE: Imaging protocol: Bilateral Screening tomosynthesis and 2D mammography including computer-aided detection (CAD) when performed. COMPARISON: 1. MG MM DIG SCREENING MAMM BI W/CAD 01/09/2021 4:57 PM 2. MG MM DIG SCREENING MAMM BI W/CAD 11/16/2019 4:29 PM FINDINGS: MAMMOGRAPHY: Breast composition: There are scattered areas of fibroglandular density. Mass: No suspicious masses. Architectural distortion: None. Calcifications: No suspicious calcifications. Asymmetric density: None. Skin thickening: None. Axillary adenopathy: No right adenopathy. The left axilla is obscured by a generator device. IMPRESSION: No mammographic evidence of malignancy. Annual screening is recommended unless otherwise clinically indicated. ASSESSMENT: BI-RADS Category 1: Negative.
--- NOTE | 2024-09-20 09:00 | XR_ITS ---
FINAL REPORT CLINICAL HISTORY: postmenopausal COMPARISON: None FINDINGS: Using L1-4, the bone mineral density of the spine is 0.882 g/cm2, corresponding to T-score of -1.5, consistent with osteopenia. Using the left hip, the bone mineral density of the femoral neck is 0.680 g/cm2, corresponding to a T-score of -1.5, consistent with osteopenia. Using the right hip, the bone mineral density of the femoral neck is 0.686 g/cm2, corresponding to a T-score of -1.5, consistent with osteopenia. FRAX 10 year fracture risk is 1.5% for a hip fracture and 17% for a major osteoporotic fracture. NOTE: T-score: Standard deviation compared with peak bone mass of young adult mean. *Following the recommendations of the International Society of Bone densitometry, classification of hip BMD is based on the lower of two T-scores; total hip or femoral neck. IMPRESSION: Diminished bone mineral density consistent with osteopenia. Reviewed, Interpreted and Dictated by Manjeet Boles MD Transcribed by Deyanira Chery Authenticated and [facility]
== END 2024-09-20 23:59 | disposition home or self-care (01) ==
LOC: RAD 07:54
PROVIDERS: PCP Family Medicine; Visit Provider Obstetrics & Gynecology
DX: M85.80 Other specified disorders of bone density and structure, unspecified site (principal); N95.1 Menopausal and female climacteric states; Z12.31 Encounter for screening mammogram for malignant neoplasm of breast
CPT/HCPCS: 77063; 77067; 77080

== ENCOUNTER 2024-09-28 11:27 | Outpatient (CLI) | payer BC, SELFPAY ==
[2024-09-28 13:43] LABS: Calcium 9.4 mg/dl (8.4-10.2)
== END 2024-09-28 23:59 | disposition home or self-care (01) ==
LOC: LAB 11:28
PROVIDERS: PCP Family Medicine; Visit Provider Obstetrics & Gynecology
DX: R53.83 Other fatigue (principal)
CPT/HCPCS: 36415; 82306; 82310

== ENCOUNTER 2025-01-24 08:32 | Day surgery (SDC) | payer BC, SELFPAY ==
--- NOTE | 2025-01-19 13:03 | EXP.HP ---
History of Present Illness *Admission Date: 01/24/25 *History of present illness: Mrs. Alfredo is a 64-year-old female who is here for initial screening colonoscopy. The examination is deemed medically necessary for screening colonoscopy. The patient has been seen, interviewed and examined prior to the procedure by both myself and the anesthesia provider. [facility] Disclaimer: The information contained in this section may have been updated after the patient was seen, as this information can be updated by other users. Medical History Pacemaker Urinary tract infection History of gastroesophageal reflux (GERD) Lung cancer Surgical History History of cholecystectomy Family History Other Family history of acute heart failure Family history of cancer Social History Smoking Status: Never smoker alcohol intake: never substance use type: denies use current occupational status: retired Travel in the last 8 weeks?: None Have you lived/traveled outside [place] in past 30 days?: No Contact w/someone who lives/traveled outside [place] past 30 days?: No Exposure to someone with infectious disease in past 14 days?: No Do you have a fever (greater than 100.4 F or 38 C)?: No Have you tested positive for COVID-19?: No Exposed to someone with COVID-19 in past 14 days?: No Do you have a sore throat?: No Do you have a cough?: No Do you have any weakness?: No Do you have any diarrhea?: No Are you experiencing any unusual bleeding?: No Do you have any muscle aches/pain?: No Do you have any abdominal pain?: No Are you experiencing loss of taste or smell?: No Review of Systems Review of Systems Review of systems (narrative): Negative *Cardiovascular Comments: Negative *Gastrointestinal Comments: Negative *Genitourinary Comments: Negative *Musculoskeletal Comments: Negative *Neurologic Comments: Negative Meds Home Medications and Allergies Home Medications ?Medication ?Instructions ?Recorded ?Confirmed ?Type cholecalciferol (vitamin D3) 50 50 mcg PO DAILY 12/04/21 01/24/25 History mcg (2,000 unit) capsule cyanocobalamin (vitamin B-12) 1,000 mcg PO DAILY 12/04/21 01/24/25 History 1,000 mcg capsule gabapentin 100 mg capsule 300 mg PO BID 12/04/21 01/24/25 History escitalopram oxalate 20 mg tablet 20 mg PO DAILY 01/19/25 01/24/25 History (Lexapro) loratadine 10 mg tablet (Claritin) 10 mg PO DAILY PRN Allergy Symptoms 01/19/25 01/24/25 History New Prescriptions to Start Prescriptions: Allergies Allergy/AdvReac Type Severity Reaction Status Date / Time No Known Allergies Allergy Verified 01/24/25 09:04 Exam *Routine HEENT Exam Head: Present normocephalic Eye: Present EOMI and PERRL ENT: Present mucous membranes moist *Routine Neck Exam Neck: Present supple *Routine Respiratory Exam Respiratory: Present CTA bilaterally *Routine Cardiovascular Exam Cardiovascular: Present RRR *Routine Abdominal Exam Abdominal: Present soft and normoactive bowel sounds; Absent tenderness *Routine Rectal Exam Rectal:: deferred *Routine Genitalia Exam Genitalia:: deferred *Routine Extremities Exam Extremities: Absent cyanosis, clubbing or edema *Routine Skin Exam Skin: Present warm; Absent rash *Routine Neurological Exam Neurological: Present alert and oriented X3 Assessment and Plan *Assessment and plan (1) Screening for colon cancer: Status: Acute Category: Medical Code(s): Z12.11 - Encounter for screening for malignant neoplasm of colon Plan A/P: 1. Screening for colon cancer is the preprocedural diagnosis. The patient will be anesthetized/sedated using MAC sedation. The patient has been seen and examined. Cardiac and lung assessment prior to the examination is stable. Proceed with planned screening colonoscopy.
[2025-01-19 13:28] VITALS: BMI 27.4
--- NOTE | 2025-01-24 08:58 | EXP.ANES.CKL ---
[facility] Disclaimer: The information contained in this section may have been updated after the patient was seen, as this information can be updated by other users. Medical History (Updated 01/19/25 @ 13:24 by Jacinda Vargas RN) Pacemaker Urinary tract infection History of gastroesophageal reflux (GERD) Lung cancer Surgical History History of cholecystectomy Family History Other Family history of acute heart failure Family history of cancer Social History Smoking Status: Never smoker alcohol intake: never substance use type: denies use current occupational status: retired Travel in the last 8 weeks?: None Have you lived/traveled outside [place] in past 30 days?: No Contact w/someone who lives/traveled outside [place] past 30 days?: No Exposure to someone with infectious disease in past 14 days?: No Do you have a fever (greater than 100.4 F or 38 C)?: No Have you tested positive for COVID-19?: No Exposed to someone with COVID-19 in past 14 days?: No Do you have a sore throat?: No Do you have a cough?: No Do you have any weakness?: No Do you have any diarrhea?: No Are you experiencing any unusual bleeding?: No Do you have any muscle aches/pain?: No Do you have any abdominal pain?: No Are you experiencing loss of taste or smell?: No [facility] Anesthesia Checklist Patient Identification Patient Identification: Arm Band and Verbal (Name & ) Structural Data Admitted From: Home Planned Operative Procedure/s: colonoscopy Consent for Planned Operative Procedure(s) Verified: Yes Verified Documents: Surgical Consent NPO Status Verified Time NPO: 00:00 Chart Verification Results Verified: None Additional verifications Anesthesia Reactions: No Airway Assessment Mallampati Score:: Class II C-Spine Mobility Assessed: Yes TMJ Mobility Assessed: Yes Dentition: Dentures-good fit Neurological Assessment Level of Consciousness: Awake, Alert and Appropriate Hx Seizures: No Numbness or tingling in extremities: No Anesthesia Plan Anesthesia Risk discussed: Yes Anesthesia Plan: Verified ASA Class: III Anesthesia Type: MAC
[2025-01-24] MEDS: LACTATED RINGERS 1000ML 1,000 ML 50 ML IV (09:07)
[2025-01-24 09:08] VITALS: BP 104/70; PULSE 70; RESP 17; TEMP 36.4; O2SAT 98
--- NOTE | 2025-01-24 09:44 | P.PCN_ITS ---
[facility] Procedure Note Date: 01/24/25 Time: 09:57 Procedure Note:: Colonoscopy Procedure Report: Colonoscopy with cold snare polypectomy Endoscopist: Clem Crandall II, MD Referring physician: Lino Cho MD Date of Procedure: January 24, 2025 Equipment: Olympus [id number] adult colonoscope Sedation: MAC sedation Indication: Mrs. Alfredo is a 64-year-old female who is here for initial screening colonoscopy. She reports no abdominal pain, weight loss, change in her bowel habits or rectal bleeding. She reports no family history of colon cancer. Procedure: Prior to the procedure, a history and physical exam was performed, and patient's medications and allergies were reviewed. The risks, benefits and alternatives of the sedation and procedure were discussed with the patient. All questions were answered and informed consent was obtained. The patient was brought to the procedure room. Patient identification and proposed procedure were verified by the physician and the nurse. The patient was placed in a left lateral decubitus position and the scope was passed under direct vision. Throughout the procedure, the patient's blood pressure, pulse, and oxygen saturations were monitored continuously. The colonoscopy was accomplished without difficulty. The patient tolerated the procedure well. Findings: On digital rectal examination there was normal rectal tone. There were no external hemorrhoids. The colonoscope was introduced through the anal canal to the rectum and advanced to the cecum. The ileocecal valve and appendiceal orifice were identified. The scope was advanced a short distance into the ileum which appeared grossly normal. The scope was then withdrawn into the colon. There was a single 9 to 10 mm polyp in the ascending colon removed via cold snare polypectomy. The remaining cecum, ascending, transverse, descending, sigmoid and rectum were grossly normal. There were no other mucosal abnormalities identified. Upon retroflexion within the rectum there were grade 1-2 internal hemorrhoids. The preparation was good throughout with [place] Prep aration Score of 8 out of 9. The cecal time was 12 minutes. Impression: 1. Ascending colon polyp (9 to 10 mm) Plan: I will follow-up the polyp histology and recommend repeat screening/surveillance colonoscopy in 5 years if the polyp is adenomatous.
[2025-01-24 09:59] VITALS: BP 90/52; PULSE 71; RESP 14; TEMP 36.1; O2SAT 93
[2025-01-24 10:09] VITALS: BP 83/52; PULSE 70; RESP 15; TEMP 36.1; O2SAT 92
[2025-01-24 10:19] VITALS: BP 95/59; PULSE 70; RESP 15; TEMP 36.1; O2SAT 94
[2025-01-24 10:29] VITALS: BP 82/59; PULSE 71; RESP 16; TEMP 36.1; O2SAT 94
== END 2025-01-24 10:48 | disposition home or self-care (01) ==
PROVIDERS: PCP Family Medicine; Visit Provider Internal Medicine Gastroenterology
PROC: 0DJD8ZZ Inspection of Lower Intestinal Tract, Via Natural or Artificial Opening Endoscopic (ICD-10-PCS; CPT 45378; principal; 2025-01-24 10:00)
DX: Z12.11 Encounter for screening for malignant neoplasm of colon (principal); D12.2 Benign neoplasm of ascending colon; Z95.0 Presence of cardiac pacemaker; Z85.118 Personal history of other malignant neoplasm of bronchus and lung
CPT/HCPCS: 45385; J2003; J2704; J7120